=== PATIENT | female | born 1960 | race Caucasian/White ===

== ENCOUNTER → 2016-10-25 | Outpatient (CLI) | payer OTHER ==
[~2016-10-25] MED LIST: D ME PO; DM/P295L13 PO; DOXY100T41 PO; INHALER INH; PRCD5U PO; PRED20TA PO
--- NOTE | 2016-10-25 10:45 | Diagnostic Imaging Report ---
INDICATION: Back pain. TECHNIQUE: AP, lateral, and coned-down views of the lumbar spine were obtained. COMPARISON: 12/13/2011. FINDINGS: The lumbar vertebrae are normal in height and alignment. There is no significant disc space narrowing. There are minor osteophytes at L3 and L5. IMPRESSION: Overt minor degenerative findings as above with no acute appearing bony abnormality. No significant change from 12/13/2011. Dictated by: Dictated on workstation # [id number]
== END ==
LOC: RAD 08:58
PROVIDERS: ATTEND Surgery
DX: Z02.71 Encounter for disability determination (principal)
CPT/HCPCS: 72100